=== PATIENT | female | born 1980 ===

== ENCOUNTER 2016-12-16 11:39 | Emergency (ER) | payer BC ==
[~2016-12-16] VITALS: Ht 170.2 cm; Wt 58.5 kg
[2016-12-16] MEDS ORDERED: ESTRACE (12:07)
[2016-12-16] MEDS ORDERED: PROGESTERONE (12:07)
[2016-12-16] MEDS ORDERED: PRENATAL VITAMINS (12:07)
--- NOTE | 2016-12-16 12:52 | NUR ---
[employer] SIGN LANGUAGE ON ASSISSTING MD TO COMMUNICATE WITH THE PT.
--- NOTE | 2016-12-16 13:07 | NUR ---
Patient discharged to home in stable conditon. Written and verbal after care instructions given. Patient verbalizes understanding of instructions.PT WALKS IN STEADY GAIT. PT ACCOMPANIED BY MARTHA
[2016-12-16 13:08] VITALS: BP 109/66
== END 2016-12-16 13:09 | disposition home or self-care (01) ==
LOC: ER 12:06
DX: O20.0 Threatened abortion (principal); Z3A.01 Less than 8 weeks gestation of pregnancy
CPT/HCPCS: 76856; A4663

== ENCOUNTER 2017-05-09 05:38 | Emergency (ER) | payer BC, MEDICAID ==
[~2017-05-09] VITALS: Ht 170.2 cm; Wt 68.0 kg
[~2017-05-09 05:38] MED LIST: ESTRACE; PRENATAL VITAMINS; PROGESTERONE
--- NOTE | 2017-05-09 06:00 | NUR ---
Dr. Willett at bedside.
--- NOTE | 2017-05-09 06:05 | NUR ---
Dr. Willett explained to pt and family this facility does not have L & D and would have to arrange transfer to closest facility with L & D capabilities. Pt decided to leave AMA. Dr. Willett explained the risks, pt verbalized understanding of those risks.
[2017-05-09 06:20] VITALS: BP 122/76
== END 2017-05-09 06:21 | disposition left against medical advice (07) ==
LOC: ER 05:38
DX: O42.90 Premature rupture of membranes, unspecified as to length of time between rupture and onset of labor, unspecified weeks of gestation (principal); M54.5 Low back pain; Z3A.21 21 weeks gestation of pregnancy; Z79.899 Other long term (current) drug therapy; Z53.29 Procedure and treatment not carried out because of patient's decision for other reasons
CPT/HCPCS: 99281; A4663

== ENCOUNTER 2022-10-30 21:44 | Emergency (ER) | payer MEDICAID ==
[~2022-10-30] VITALS: Ht 170.2 cm; Wt 61.2 kg
[2022-10-30 22:53] LABS: BASOPHILS # (AUTO) 0.1 K/UL (0.0-0.2); EOSINOPHILS # (AUTO) 0.2 K/uL (0.0-0.7); LYMPHOCYTES # (AUTO) 2.2 K/uL (0.8-4.8); MONOCYTES # (AUTO) 0.5 K/uL (0.1-1.30)
[2022-10-30 23:01] LABS: BASOPHILS % (AUTO) 1.7 % (0.0-2.0); DIFFERENTIAL COMMENT 0; EOSINOPHILS % (AUTO) 2.3 % (0.0-7.0); HEMATOCRIT 22.8 % (31.2-41.9); LYMPHOCYTES % (AUTO) 33.7 % (20.5-51.5); MEAN CORPUSCULAR HEMOGLOBIN 17.1 uug (24.7-32.8); MEAN CORPUSCULAR HGB CONC 30 g/dL (32.3-35.6); MEAN CORPUSCULAR VOLUME 56.8 fL (75.5-95.3); MONOCYTES % (AUTO) 8.1 % (0.0-11.0); NEUTROPHILS # (AUTO) 3.6 K/uL (1.8-8.9); NEUTROPHILS % (AUTO) 54.2 % (38.5-71.5); PLATELET COUNT (AUTO) 366 K/uL (179-408); RED BLOOD CELL COUNT(AUTO) 4.01 MIL/uL (3.63-4.92); RED CELL DISTRIBUTION WIDTH 19.5 % (12.3-17.7)
[2022-10-30 23:02] LABS: CALCIUM 8.5 mg/dL (8.5-10.1); CARBON DIOXIDE 27 mmol/L (21-32); CHLORIDE 104 mmol/L (98-107); CREATININE 0.5 mg/dL (0.6-1.3); GLUCOSE 109 mg/dL (74-106); POTASSIUM 3.8 mmol/L (3.5-5.1); SODIUM SERUM 139 mmol/L (136-145); UREA NITROGEN, BLOOD 7 mg/dL (7-18)
[2022-10-30 23:06] LABS: HEMOGLOBIN 6.8 g/dL (10.9-14.3)
[2022-10-30 23:07] LABS: WHITE BLOOD COUNT (AUTO) 6.6 K/uL (3.8-11.8)
[2022-10-30 23:08] LABS: ALANINE AMINOTRANSFERASE 28 U/L (14-59); ALKALINE PHOSPHATASE 90 U/L (50-136); ASPARTATE AMINOTRANSFERASE 10 U/L (15-37); BILIRUBIN,DIRECT 0.2 mg/dL (0.0-0.2); BILIRUBIN,TOTAL 0.9 mg/dL (0.2-1.0); TOTAL PROTEIN, SERUM 7.4 g/dL (6.4-8.2)
[2022-10-31 00:41] LABS: ANISOCYTOSIS 2+; EOSINOPHILS % (MANUAL) 1 % (0-8); HYPOCHROMASIA 2+; LYMPHOCYTES % (MANUAL) 30 % (20-40); MONOCYTES % (MANUAL) 5 % (2-10); NEUTROPHILS % (MANUAL) 64 % (42-75); PLATELET ESTIMATE ADEQUATE
[2022-10-31] MEDS ORDERED: FERR-68 PO (00:49)
[2022-10-31 02:37] VITALS: BP 105/62; O2SAT 100
== END 2022-10-31 02:37 | disposition home or self-care (01) ==
LOC: ER 21:48
DX: D64.9 Anemia, unspecified (principal); R53.83 Other fatigue; Z79.899 Other long term (current) drug therapy
CPT/HCPCS: 80076; 80048; 85007; 85025; 85730; 86850; 86900; 86901; 86920; 84484; 36415; 93005; 99291; P9016; 70030-TC; A4663